=== PATIENT | female | born 1960 | race Caucasian/White ===

== ENCOUNTER 2018-05-31 08:55 | Emergency (ER) | payer OTHER ==
--- NOTE | 2018-05-31 09:16 | ER Report ---
History and Physical Time Seen By MD: 09:16 Hx. of Stated Complaint: Pt. was driving her car. Face became completely numb, her mouth "was tight", her eyes were "shutting up and down", and she could not talk. Symtoms started at 0730 and lasted for 10 minutes. HPI/ROS 57-year-old female who presents to the emergency department stating that today she was driving to work when all of a sudden she experienced bilateral eye twitching and a "locking" of the muscles around her mouth. She states that she was in a hurry at the time, but denies hyperventilating or feeling panicked. She states that she's had similar symptoms in the past and also has experienced acute numbness and tingling in her bilateral hands and feet. She did not experience that today. She states that the episodes occur approximately one to 2 times per year. She denies any vision changes. No eye pain. No weakness. She denies night sweats or fevers. No chest pain or shortness of breath. She denies any unilateral or focal neurologic symptoms or deficits. She denies headache. Remainder of the 14 system rev: Yes Allergies: Coded Allergies: No Known Drug Allergies (Unverified , 05/31/18) Reviewed Nurses Notes: Yes Old Medical Records Reviewed: Yes Hx Smoking: No Smoking Status: Never Smoker Exposure to Second Hand Smoke?: No Hx Substance Use Disorder: No Hx Alcohol Use: No Constitutional Vital Sign - Last 24 Hours 05/31/18 05/31/18 05/31/18 05/31/18 09:05 09:09 09:25 09:30 Temp 97.9 Pulse 69 75 70 Resp 16 14 11 B/P (MAP) 135/89 135/89 (104) Pulse Ox 95 O2 Delivery Room Air 05/31/18 05/31/18 05/31/18 10:00 10:30 11:00 Pulse 64 69 68 Resp 8 11 B/P (MAP) 94/76 (82) Pulse Ox 94 94 Physical Exam General Appearance: The patient is alert, has no immediate need for airway protection and no current signs of toxicity. Eyes: Pupils equal and round no injection. Respiratory: Chest is non tender, lungs are clear to auscultation. Cardiac: regular rate and rhythm Gastrointestinal: Abdomen is soft and non tender, no masses, bowel sounds normal. Musculoskeletal: Neck: Neck is supple and non tender. Extremities have full range of motion and are non tender. Skin: No rashes or lesions. Neuro: CN in tact, strength/sensation in tact, reflexes normal Medical Decision Making Data Points Result Diagram: 05/31/1825 05/31/18924 Laboratory Hematology Test 05/31/18 09:07 05/31/18 09:21 05/31/18 09:25 Urine Color Straw Urine Clarity Clear Urine pH 7.0 pH (4.8-9.5) Urine Specific [place] 1.005 Urine Protein Negative mg/dL (NEGATIVE) Urine Glucose (UA) Negative mg/dL (NEGATIVE) Urine Ketones Negative mg/dL (NEGATIVE) Urine Blood Negative (NEGATIVE) Urine Nitrite Negative (NEGATIVE) Urine Bilirubin Negative (NEGATIVE) Urine Urobilinogen Negative mg/dL (0.2-1.9) Urine Leukocyte Esterase Negative (NEGATIVE) Urine RBC None /HPF (0-2/HPF) Urine WBC <1 /HPF (0-5/HPF) Urine Squamous Epithelial Cells Moderate /LPF (</=FEW) Urine Bacteria Negative /HPF (NONE-FEW) Urine Mucus None /HPF (NONE-FEW) Whole Blood Glucose 97 mg/DL (75-110) Red Blood Count 5.08 M/uL (4.17-5.56) Mean Corpuscular Volume 90.4 fL (80.0-96.0) Mean Corpuscular Hemoglobin 30.3 pg (26.0-33.0) Mean Corpuscular Hemoglobin Concent 33.5 g/dL (32.0-36.0) Red Cell Distribution Width 12.5 % (11.5-14.5) Mean Platelet Volume 7.7 fL (7.2-11.1) Neutrophils (%) (Auto) 52.6 % (39.4-72.5) Lymphocytes (%) (Auto) 37.8 % (17.6-49.6) Monocytes (%) (Auto) 7.7 % (4.1-12.4) Eosinophils (%) (Auto) 1.1 % (0.4-6.7) Basophils (%) (Auto) 0.8 % (0.3-1.4) Nucleated RBC Relative Count (auto) 0.1 /100WBC Neutrophils # (Auto) 2.6 K/uL (2.0-7.4) Lymphocytes # (Auto) 1.8 K/uL (1.3-3.6) Monocytes # (Auto) 0.4 K/uL (0.3-1.0) Eosinophils # (Auto) 0.1 K/uL (0.0-0.5) Basophils # (Auto) 0.0 K/uL (0.0-0.1) Nucleated RBC Absolute Count (auto) 0.00 K/uL Sodium Level 140 mmol/L (137-145) Potassium Level 3.6 mmol/L (3.5-5.0) Chloride Level 107 mmol/L (98-107) Carbon Dioxide Level 24 mmol/L (22-31) Blood Urea Nitrogen 10 mg/dl (7-18) Creatinine 0.70 mg/dl (0.52-1.04) Glomerular Filtration Rate Calc > 60.0 Random Glucose 95 mg/dl (75-110) Calcium Level 9.5 mg/dl (8.4-10.2) Total Bilirubin 0.4 mg/dl (0.2-1.3) Aspartate Amino Transf (AST/SGOT) 35 U/L (0-35) Alanine Aminotransferase (ALT/SGPT) 29 U/L (0-56) Alkaline Phosphatase 93 U/L (0-126) Total Protein 7.7 g/dl (6.3-8.2) Albumin 4.3 g/dl (3.5-5.0) Chemistry Test 05/31/18 09:07 05/31/18 09:21 05/31/18 09:25 Urine Color Straw Urine Clarity Clear Urine pH 7.0 pH (4.8-9.5) Urine Specific [place] 1.005 Urine Protein Negative mg/dL (NEGATIVE) Urine Glucose (UA) Negative mg/dL (NEGATIVE) Urine Ketones Negative mg/dL (NEGATIVE) Urine Blood Negative (NEGATIVE) Urine Nitrite Negative (NEGATIVE) Urine Bilirubin Negative (NEGATIVE) Urine Urobilinogen Negative mg/dL (0.2-1.9) Urine Leukocyte Esterase Negative (NEGATIVE) Urine RBC None /HPF (0-2/HPF) Urine WBC <1 /HPF (0-5/HPF) Urine Squamous Epithelial Cells Moderate /LPF (</=FEW) Urine Bacteria Negative /HPF (NONE-FEW) Urine Mucus None /HPF (NONE-FEW) Whole Blood Glucose 97 mg/DL (75-110) White Blood Count 4.9 k/uL (4.5-11.0) Red Blood Count 5.08 M/uL (4.17-5.56) Hemoglobin 15.4 g/dL (12.0-16.0) Hematocrit 45.9 % (34.0-47.0) Mean Corpuscular Volume 90.4 fL (80.0-96.0) Mean Corpuscular Hemoglobin 30.3 pg (26.0-33.0) Mean Corpuscular Hemoglobin Concent 33.5 g/dL (32.0-36.0) Red Cell Distribution Width 12.5 % (11.5-14.5) Platelet Count 269 K/uL (150-450) Mean Platelet Volume 7.7 fL (7.2-11.1) Neutrophils (%) (Auto) 52.6 % (39.4-72.5) Lymphocytes (%) (Auto) 37.8 % (17.6-49.6) Monocytes (%) (Auto) 7.7 % (4.1-12.4) Eosinophils (%) (Auto) 1.1 % (0.4-6.7) Basophils (%) (Auto) 0.8 % (0.3-1.4) Nucleated RBC Relative Count (auto) 0.1 /100WBC Neutrophils # (Auto) 2.6 K/uL (2.0-7.4) Lymphocytes # (Auto) 1.8 K/uL (1.3-3.6) Monocytes # (Auto) 0.4 K/uL (0.3-1.0) Eosinophils # (Auto) 0.1 K/uL (0.0-0.5) Basophils # (Auto) 0.0 K/uL (0.0-0.1) Nucleated RBC Absolute Count (auto) 0.00 K/uL Glomerular Filtration Rate Calc > 60.0 Calcium Level 9.5 mg/dl (8.4-10.2) Total Bilirubin 0.4 mg/dl (0.2-1.3) Aspartate Amino Transf (AST/SGOT) 35 U/L (0-35) Alanine Aminotransferase (ALT/SGPT) 29 U/L (0-56) Alkaline Phosphatase 93 U/L (0-126) Total Protein 7.7 g/dl (6.3-8.2) Albumin 4.3 g/dl (3.5-5.0) Urinalysis Test 05/31/18 09:07 Urine Color Straw Urine Clarity Clear Urine pH 7.0 pH (4.8-9.5) Urine Specific [place] 1.005 Urine Protein Negative mg/dL (NEGATIVE) Urine Glucose (UA) Negative mg/dL (NEGATIVE) Urine Ketones Negative mg/dL (NEGATIVE) Urine Blood Negative (NEGATIVE) Urine Nitrite Negative (NEGATIVE) Urine Bilirubin Negative (NEGATIVE) Urine Urobilinogen Negative mg/dL (0.2-1.9) Urine Leukocyte Esterase Negative (NEGATIVE) Urine RBC None /HPF (0-2/HPF) Urine WBC <1 /HPF (0-5/HPF) Urine Squamous Epithelial Cells Moderate /LPF (</=FEW) Urine Bacteria Negative /HPF (NONE-FEW) Urine Mucus None /HPF (NONE-FEW) ED Course/Re-evaluation ED Course Bilateral eye twitching, facial twitching and off tightness early this morning while driving to work. No unilateral or focal neurologic symptoms. Symptoms resolved spontaneously. Normal neuro exam otherwise, normal labs, and normal CT scan of the head. I discussed with the patient that her symptoms should be further evaluated by a neurologist and primary care physician. Her symptoms could be anywhere from benign to MS or ALS, etc. No further acute workup needed in the ED. the patient did not have a primary care physician, so I scheduled her a new patient appointment with Dr. Jaylen Landa in [place] for this week. Patient will follow-up with Dr. Landa. Decision to Disposition Date: May 31, 2018 Decision to Disposition Time: 11:47 Depart Departure Latest Vital Signs Vital Signs Date Time Temp Pulse Resp B/P (MAP) Pulse Ox O2 Delivery O2 Flow Rate FiO2 05/31/18 11:00 68 94/76 (82) 05/31/18 10:30 11 94 05/31/18 09:05 97.9 Room Air Impression: Primary Impression: Muscle twitching Condition: Improved Disposition: HOME OR SELF-CARE Referrals: JAYLEN LANDA Additional Instructions: You have an appointment scheduled for Thursday at 3:00 PM with Jaylen Landa in [place] MIKALA TRIPLETT MD May 31, 2018 09:16
--- NOTE | 2018-05-31 09:32 | EKG ---
[place]AC[place] [facility] [place] NAME: HARLEY JOYCE : [id number] MR: [id number] V: [id number] EXAM DATE: ORDERING PHYSICIAN: MIKALA TRIPLETT TECHNOLOGIST: SHERRY Mai Reason : TIA Blood Pressure : / mmHG Vent. Rate : 079 BPM Atrial Rate : 079 BPM P-R Int : 168 ms QRS Dur : 066 ms QT Int : 392 ms P-R-T Axes : 071 061 050 degrees QTc Int : 449 ms Normal sinus rhythm with sinus arrhythmia Normal ECG No previous ECGs available Confirmed by EDWIGE RESENDIZ ([id number]) on 05/31/2018 10:13:06 AM Referred By: IOANA Confirmed By:EDWIGE RESENDIZ
[2018-05-31 09:40] LABS: PLATELET COUNT, AUTOMATED 269 K/uL (150-450)
--- NOTE | 2018-05-31 09:58 | RADIOLOGY IMAGING REPORT ---
FACILITY: [facility] - [place] PATIENT NAME: Nikole Lipscomb : 1960 MR: [id number] V: [id number] EXAM DATE: ORDERING PHYSICIAN: MIKALA TRIPLETT TECHNOLOGIST: Location: [facility] - [place] Patient: Nikole Lipscomb : 1960 Visit/Account:[id number] Date of Sevice: 05/31/2018 Study: CT scan of the brain without intravenous contrast. Indication: Stroke symptoms now resolved Comparison study:None Technique: Multiple axial images were obtained through the brain without the use of intravenous contr ast. One of the following dose optimization techniques was utilized in the performance of this exam: Autom ated exposure control; adjustment of the mA and/or kV according to the patient's size; or use of an i terative reconstruction technique. Specific details can be referenced in the facility's radiology C T exam operational policy. The examination demonstrates no evidence of acute intracranial hemorrhage. There is no evidence of ex tra-axial collection or hydrocephalus. There is no abnormal density identified within the brain parenchyma. There is no evidence of disruption of the peripheral merino-white junction. The bony structures are unremarkable. IMPRESSION:Unremarkable CT scan of the brain without contrast. Report Dictated By: Horacio Crawford at 05/31/2018 9:53 AM Report E-Signed By: Horacio Crawford at 05/31/2018 9:55 AM WSN:[id number]
[2018-05-31 11:30] VITALS: BP 108/84
== END 2018-05-31 12:08 | disposition home or self-care (01) ==
LOC: ER 09:14
DX: R25.3 Fasciculation (principal); I49.9 Cardiac arrhythmia, unspecified
CPT/HCPCS: 36416; 70450; 81001; 82040; 82247; 82310; 82374; 82435; 82565; 82947; 82948; 84075; 84132; 84155; 84295; 84450; 84460; 84520; 85025; 93005; 99284